=== PATIENT | female | born 1960 ===

== ENCOUNTER → 2024-03-13 | Day surgery (SDC) | payer BC, OTHER ==
[2024-03-13 08:19] VITALS: BMI 22.6
[2024-03-13 11:07] VITALS: TEMP 97.5
[2024-03-13 11:33] VITALS: BP 118/70; PULSE 70; RESP 16
== END | disposition home or self-care (01) ==
LOC: JASU-ENDO 04:23
PROVIDERS: ATTEND Internal Medicine Gastroenterology
PROC: 0DJD8ZZ Inspection of Lower Intestinal Tract, Via Natural or Artificial Opening Endoscopic (ICD-10-PCS; principal; 2024-03-13 10:15)
DX: Z12.11 Encounter for screening for malignant neoplasm of colon (principal); K64.8 Other hemorrhoids; K59.89 Other specified functional intestinal disorders